=== PATIENT | female | born 1935 | race Caucasian/White ===

== ENCOUNTER 2019-11-17 18:12 | Inpatient (IN) | payer OTHER, MEDICAID ==
[~2019-11-17] VITALS: Ht 127 cm; Wt 71.4 kg
[2019-11-18] MEDS ORDERED: VENTOLIN 02.5 MG/3 M INH (09:12)
[2019-11-18] MEDS ORDERED: ARICEPT10 M1 PO (09:13)
[2019-11-18] MEDS ORDERED: LIPITOR20 MG PO (09:14)
[2019-11-18] MEDS ORDERED: ASPIRIN81 MG PO (09:14)
[2019-11-18] MEDS ORDERED: BIOFREEZE118 ML T (09:15)
[2019-11-18] MEDS ORDERED: ENULOSE10 GM/151 PO (09:16)
[2019-11-18] MEDS ORDERED: LASIX20 MG PO (09:16)
[2019-11-18] MEDS ORDERED: LOSARTAN POTASS25 M1 PO (09:17)
[2019-11-18] MEDS ORDERED: CLARITIN10 MG PO (09:17)
[2019-11-18] MEDS ORDERED: LOPRESSOR50 M1 PO (09:18)
[2019-11-18] MEDS ORDERED: SINGULAIR10 M1 PO (09:19)
[2019-11-18] MEDS ORDERED: DAILY VITE1 EACH PO (09:19)
[2019-11-18] MEDS ORDERED: PEPCID20 MG PO (09:20)
[2019-11-18] MEDS ORDERED: PERCOCET 5-3251 EACH PO (09:20)
[2019-11-18] MEDS ORDERED: VITAMIN D32000 UNI1 PO (09:21)
[2019-11-18] MEDS ORDERED: ZYPREXA5 M1 PO (09:21)
[2019-11-18 15:21] VITALS: BP 128/61
[2019-11-18 15:58] LABS: BILIRUBIN NEGATIVE (NEGATIVE); BLOOD NEGATIVE (NEGATIVE); CLARITY CLEAR (CLEAR); COLOR YELLOW (YELLOW); GLUCOSE NEGATIVE (NEGATIVE); KETONE TRACE (NEGATIVE); LEUKO ESTERASE NEGATIVE (NEGATIVE); NITRITE NEGATIVE (NEGATIVE); UROBILINOGEN 0.2 E.U./dl (0.2-1.0)
[2019-11-18 16:02] LABS: BACTERIA 1+; HYALINE CAST 0-2; RBC 0-2 rbc/hpf (0-2)
[2019-11-18 16:14] VITALS: BP 128/61
[2019-11-18 20:08] VITALS: BP 128/61
[2019-11-19 07:40] VITALS: BP 113/64
[2019-11-19 09:02] LABS: BASO % 0.3 % (0.0-1.0); EOS # 0.1 10*3/uL (0.0-0.4); EOS % 2.4 % (1.0-4.0); HEMATOCRIT 41.7 % (37.0-47.0); HEMOGLOBIN 13.6 g/dl (12.0-16.0); LYMPH # 1.7 10*3/uL (1.3-4.4); LYMPH % 29.9 % (27.0-41.0); MEAN CELL VOLUME 97.9 fl (81.0-99.0); MEAN CORPUSCULAR HGB 31.9 pg (27.0-31.0); MEAN CORPUSCULAR HGB CONC 32.6 g/dl (33.0-37.0); MEAN PLATELET VOLUME 10.1 fl (9.6-12.3); MONO # 0.5 10*3/uL (0.1-1.0); MONO % 8.7 % (3.0-9.0); NEUT # 3.4 10*3/uL (2.3-7.9); NEUT % 58.5 % (47.0-73.0); PLATELET COUNT AUTOMATED 275 10*3/uL (130-400); RED BLOOD COUNT 4.26 10*6/uL (4.10-5.10); RED CELL DISTRI WIDTH 12.7 % (0-14.5); WHITE BLOOD COUNT 5.8 10*3/uL (4.8-10.8)
[2019-11-19 09:30] LABS: ALBUMIN 3.5 gm/dl (3.1-4.5); CREATININE 1.06 mg/dL (0.55-1.02); POTASSIUM 3.5 mmol/L (3.5-5.1); TOTAL PROTEIN 8.1 gm/dL (6.4-8.2)
[2019-11-19 09:36] LABS: THYROID STIM HORMONE (HS) 1.25 uIU/ml (0.358-4.75)
[2019-11-19 10:06] LABS: VITAMIN D, 25-HYDROXY 32.5 ng/mL (30-100)
[2019-11-19 17:37] LABS: LIPASE 87 U/L (73-393)
[2019-11-19 20:01] VITALS: BP 128/72
[2019-11-20 07:57] VITALS: BP 128/75
[2019-11-20 19:55] VITALS: BP 111/62
[2019-11-21 08:00] VITALS: BP 130/78
[2019-11-21 20:00] VITALS: BP 133/61
[2019-11-22 07:43] VITALS: BP 126/73
[2019-11-22 19:45] VITALS: BP 112/72
[2019-11-22 20:25] VITALS: BP 108/68
[2019-11-23 07:55] VITALS: BP 105/54
[2019-11-23 19:47] VITALS: BP 100/65
[2019-11-24 07:28] VITALS: BP 111/67
[2019-11-24 19:33] VITALS: BP 115/68
[2019-11-24 20:50] VITALS: BP 122/80
[2019-11-25 08:00] VITALS: BP 115/60
[2019-11-25 19:58] VITALS: BP 114/64
[2019-11-26 08:00] VITALS: BP 120/66
[2019-11-26 19:49] VITALS: BP 122/68
[2019-11-27 08:00] VITALS: BP 114/77
[2019-11-27 20:00] VITALS: BP 116/72
[2019-11-28 07:33] VITALS: BP 117/88
[2019-11-28 20:00] VITALS: BP 125/62
[2019-11-29 07:44] VITALS: BP 133/71
[2019-11-29] MEDS ORDERED: RISPERIDONE1 MG PO (08:09)
[2019-11-29] MEDS ORDERED: EXELON13.3 MG/21 T (08:09)
[2019-11-29] MEDS ORDERED: DULOXETINE HCL30 MG PO (08:09)
[2019-11-29] MEDS ORDERED: MEMANTINE HCL10 MG PO (08:09)
[2019-11-29] MEDS ORDERED: LACTULOSE20 GM/30 M PO (08:16)
== END 2019-11-29 12:08 | DRG 885 ==
LOC: 3N 18:12
PROVIDERS: Student in an Organized Health Care Education/Training Program; ADMIT Psychiatry & Neurology Psychiatry
DX: F33.3 Major depressive disorder, recurrent, severe with psychotic symptoms (principal); F02.81 Dementia in other diseases classified elsewhere, unspecified severity, with behavioral disturbance; Z68.41 Body mass index [BMI] 40.0-44.9, adult; E66.01 Morbid (severe) obesity due to excess calories; J44.9 Chronic obstructive pulmonary disease, unspecified; R00.1 Bradycardia, unspecified; E78.5 Hyperlipidemia, unspecified; R82.71 Bacteriuria; M48.00 Spinal stenosis, site unspecified; G25.81 Restless legs syndrome; I10 Essential (primary) hypertension; M81.0 Age-related osteoporosis without current pathological fracture; G62.9 Polyneuropathy, unspecified; K21.9 Gastro-esophageal reflux disease without esophagitis; J45.20 Mild intermittent asthma, uncomplicated; I25.10 Atherosclerotic heart disease of native coronary artery without angina pectoris; R13.10 Dysphagia, unspecified; R53.1 Weakness; F41.1 Generalized anxiety disorder; G89.4 Chronic pain syndrome; G30.9 Alzheimer's disease, unspecified; F48.2 Pseudobulbar affect; Z88.8 Allergy status to other drugs, medicaments and biological substances; Z88.0 Allergy status to penicillin; Z88.2 Allergy status to sulfonamides; Z91.011 Allergy to milk products; Z95.0 Presence of cardiac pacemaker; Z90.49 Acquired absence of other specified parts of digestive tract; Z98.891 History of uterine scar from previous surgery; Z82.49 Family history of ischemic heart disease and other diseases of the circulatory system; Z79.82 Long term (current) use of aspirin; Z79.899 Other long term (current) drug therapy